=== PATIENT | female | born 1950 | race Caucasian/White ===

== ENCOUNTER → 2019-02-28 | Emergency (ER) | payer MEDICARE ==
[~2019-02-28] VITALS: Ht 170.2 cm; Wt 81.6 kg
--- NOTE | 2019-02-28 01:04 | Diagnostic Imaging Report ---
EXAMINATION: CXR 1 VEW - HOPD INDICATION: Short of breath COMPARISON: None FINDINGS: TUBES and LINES: None. LUNGS: Lungs are well inflated. Calcific granuloma in the right lower lobe. There is no evidence of pneumonia or pulmonary edema. PLEURA: No pleural effusion or pneumothorax. HEART AND MEDIASTINUM: The cardiomediastinal silhouette is unremarkable. BONES AND SOFT TISSUES: There are degenerative changes in the thoracic spine. Surgical clips in the left exiting. UPPER ABDOMEN: No free air under the diaphragm. There are cholecystectomy clips. IMPRESSION: No acute thoracic radiographic abnormality. Signed by: Nestor Villasenor DO on 02/28/2019 1:01 AM
--- NOTE | 2019-02-28 02:55 | NUR ---
WAITING ON ACCEPTANCE FROM [facility] JOHAN MERRILL, DOC TO DOC COMPLETED
--- NOTE | 2019-02-28 03:09 | NUR ---
[facility] NOTIFIED FOR TRANSFER, ETA GIVEN BY JODI IS 30 MINUTES OR LESS
[2019-02-28 03:30] VITALS: BP 119/59
== END | disposition short-term general hospital (02) ==
LOC: FSED 00:15
DX: R07.2 Precordial pain (principal)
CPT/HCPCS: 71045; 80053; 82553; 83880; 84484; 85025; 85379; 85610; 93005; 99284

== ENCOUNTER 2022-07-18 17:00 | Emergency (ER) | payer MEDICARE ==
[~2022-07-18] VITALS: Ht 170.2 cm; Wt 81.6 kg
[2022-07-18 17:37] LABS: BASOPHILS % 0.3 % (0.0-1.0); EOSINOPHILS # (AUTO) 0.2 (0.0-0.4); EOSINOPHILS % 3.2 % (0.0-6.0); HEMATOCRIT 39.6 % (34.2-44.1); HEMOGLOBIN 13.5 g/dL (12.0-16.0); LYMPHOCYTES # (AUTO) 2.7 (1.0-3.2); LYMPHOCYTES % 40.4 % (18.0-39.1); MEAN CORPUSCULAR HEMOGLOBIN 30.1 pg (28-32); MEAN CORPUSCULAR HGB CONC 34.1 g/dL (31-35); MEAN CORPUSCULAR VOLUME 88.2 fL (81-99); MONOCYTES # (AUTO) 0.6 (0.2-0.8); MONOCYTES % 8.4 % (4.4-11.3); NEUTROPHILS # (AUTO) 3.2 (2.1-6.9); NEUTROPHILS % 47.5 % (38.7-80.0); PLATELET COUNT 228 x10e3/uL (140-360); RED BLOOD COUNT 4.49 x10e6/uL (3.6-5.1); RED CELL DISTRIBUTION WIDTH 11.6 % (11.7-14.4)
[2022-07-18 18:04] LABS: ALANINE AMINOTRANSFERASE 16 IU/L (0-55); ALBUMIN 3.6 g/dL (3.5-5.0); ALBUMIN/GLOBULIN RATIO 1.1 (0.8-2.0); ALKALINE PHOSPHATASE 60 IU/L (40-150); ANION GAP 12.7 mmol/L (8-16); BLOOD UREA NITROGEN 7 mg/dL (7-26); BUN/CREATININE RATIO 8 (6-25); CALCIUM 9.2 mg/dL (8.4-10.2); CARBON DIOXIDE 27 mmol/L (22-29); CHLORIDE 106 mmol/L (98-107); CREATININE, SERUM 0.85 mg/dL (0.57-1.11); GLUCOSE 118 mg/dL (74-118); POTASSIUM 3.7 mmol/L (3.5-5.1); SODIUM 142 mmol/L (136-145)
[2022-07-18 19:26] VITALS: BP 134/67
== END 2022-07-18 19:26 | disposition home or self-care (01) ==
LOC: ER 17:03
DX: R06.02 Shortness of breath (principal); I10 Essential (primary) hypertension; E78.5 Hyperlipidemia, unspecified; K21.9 Gastro-esophageal reflux disease without esophagitis; Z20.822 Contact with and (suspected) exposure to COVID-19; Z85.89 Personal history of malignant neoplasm of other organs and systems
CPT/HCPCS: 0223U; 36415; 71045; 80053; 83880; 84484; 85025; 85379; 93005; 99284